=== PATIENT | male | born 1985 | race Caucasian/White ===

== ENCOUNTER 2021-02-23 14:39 | Inpatient (IN) | payer MEDICAID, SELFPAY ==
[2021-02-23] VITALS (21 sets, daily range): BP systolic 93–150; BP diastolic 66–100; PULSE 83–101; RESP 15–25; TEMP 36.6–36.8; O2SAT 81–100; BMI 36.9
--- NOTE | 2021-02-23 14:47 | ED_ITS ---
HPI - Chest Pain General: Chief Complaint: Chest Pain Stated Complaint: chest pain Time Seen by Provider: 02/23/21 14:44 History of Present Illness: HPI narrative: 35-year-old male with a history of coronary disease with previous coronary artery bypass graft. Presents complaining of chest pain that began earlier today while at rest rated the pain 6 out of 10. Began about half hour prior to arrival here he took a sublingual nitro with minimal relief of discomfort. There is no radiation of the pain. He has not had any fever sweats or chills he is mildly short of breath with exertion no diaphoresis. MD complaint: chest pain Pertinent past history: coronary artery disease Onset (ago): hour(s) Timing of current episode: episodic and constant Prior episodes: Yes Onset: during rest Pain location: substernal Pain radiation: none Severity: moderate Quality: tightness and heaviness Relieving factors: nothing Exacerbating factors: nothing Associated symptoms: Deny abdominal pain, diaphoresis, dyspnea, fever(s), leg edema, nausea, palpitations, sense of impending doom, syncope or vomiting Treatment prior to arrival: aspirin and nitroglycerin Review of Systems Const: Denies: fever(s) or diaphoresis Card: Denies: palpitations or syncope Resp: Denies: dyspnea GI: Denies: abdominal pain, nausea or vomiting PFSH ED PFSH: Medical History (Updated 02/23/21 @ 20:02 by Aj Huerta MD) Anxiety Bundle branch block, left Coronary artery disease Depression Diabetes mellitus Family history of heart disease in male family member before age 55 Hypothyroidism Obesity Smoker Substance abuse Surgical History (Updated 02/23/21 @ 16:48 by Biju Power DO) S/P CABG (coronary artery bypass graft) Family History (Updated 02/23/21 @ 17:18 by Noe Olivarez MD) Father CAD (coronary artery disease) Mother CAD (coronary artery disease) Social History (Updated 02/23/21 @ 17:19 by Noe Olivarez MD) Smoking and tobacco status: current some day smoker Alcohol intake: never Housing: Other Details: Lives at [facility] for now Physical Exam Const: COMMON NORMALS: no acute distress GENERAL APPEARANCE: cooperative and comfortable ORIENTATION/CONSCIOUSNESS: Yes awake, Yes oriented to person, Yes oriented to place and Yes oriented to time HENMT: COMMON NORMALS: normocephalic, atraumatic and hearing grossly normal bilaterally HEAD & SCALP: normocephalic and atraumatic Neck/C-Spine: COMMON NORMALS: no JVD Resp: COMMON NORMALS: normal respiratory effort, No retractions, No use of accessory muscles and clear to auscultation bilaterally AUSCULTATION: clear to auscultation bilaterally Cardio: COMMON NORMALS: no JVD, regular rate, regular rhythm and No murmurs present (Cardio) RATE: regular rate RHYTHM: regular rhythm GI: COMMON NORMALS: Soft to palpation and No hepatosplenomegaly present AUSCULTATION: Yes normoactive bowel sounds PALPATION: Yes Soft to palpation, No Tenderness to palpation present (GI), No Guarding due to palpation present (GI) and Yes No hepatosplenomegaly present Extremity: COMMON NORMALS: normal to inspection, capillary refill normal, no clubbing, cyanosis or edema, no calf tenderness and no pedal edema Neuro: SENSORIUM/ORIENTATION: Yes oriented to person, Yes oriented to place and Yes oriented to time Skin: COMMON NORMALS: no rashes or lesions noted GENERAL SKIN EXAM: no rashes or lesions noted Course Vital Signs: Vital signs: Vital Signs Temperature 98.4 F 02/24/21 14:03 Pulse Rate 86 02/24/21 14:03 Respiratory Rate 16 02/24/21 14:03 Blood Pressure 148/84 02/24/21 14:03 Pulse Oximetry 96 02/24/21 14:03 MDM - Chest Pain MDM Narrative: Medical decision making narrative: Patient having persistent pain has been given IV nitro morphine we will start him on a heparin drip. When he initially arrived I reviewed the EKGs and forward them to Dr. Galicia there is a bundle branch block there appears to be some ST elevation I think it is all due from the bundle branch block in V23 and 4 does not strictly meet criteria. Dr. Huerta is planning to come and see the patient and evaluate. I discussed Dr. Olivarez orders are written. Lab Data: Labs: Lab Results 02/23/21 02/23/21 02/23/21 15:10 15:10 15:10 WBC 8.3 10^3/uL 10^3/ uL (4.0-10.0) RBC 4.57 10^6/uL 10^6 /uL (4.1-5.3) Hgb 14.6 g/dL g/dL (11.7-16.6) Hct 43.3 % % (42.0-52.0) MCV 94.7 fl H fl (80-94) MCH 31.9 pg pg (28.0-34.0) MCHC 33.7 g/dL g/dL (30.0-36.0) RDW 12.2 % % (12.1-15.1) Plt Count 266 10^3/cmm 10^3 /cmm (130-400) MPV 10.5 fL H fL (7.4-10.4) Neut % (Auto) 60.5 % % Lymph % (Auto) 27.6 % % Trinity % (Auto) 8.4 % % Eos % (Auto) 2.5 % % Baso % (Auto) 0.5 % % Neut # (Auto) 5.04 10^3/uL 10^3 /uL (1.8-7.7) Lymph # (Auto) 2.3 10^3/uL 10^3/ uL (0.8-4.8) Trinity # (Auto) 0.7 10^3/uL 10^3/ uL (0.2-0.9) Eos # (Auto) 0.2 10^3/uL 10^3/ uL (0.0-0.8) Baso # (Auto) 0.0 10^3/uL 10^3/ uL (0.0-0.1) Nucleated RBC % (a uto) 0 % % Nucleated RBCs # 0.0 /100WBC /100W BC Sodium 134 mmol/L L mmol /L (136-145) Potassium 4.5 mmol/L mmol/L (3.5-5.1) Chloride 98 mmol/L mmol/L (98-107) Carbon Dioxide 20 mmol/L L mmol/ L (22-29) Anion Gap 20.5 H (5-19) BUN 13 mg/dL mg/dL (6-20) Creatinine 0.8 mg/dL mg/dL (0.7-1.2) GFR Calculation 108.8 mL/min mL/m in (90-130) Glucose 333 mg/dL H mg/dL (65-115) Calculated Osmolal ity 291 mOsm/kg mOsm/ kg (285-295) Calcium 8.8 mg/dL mg/dL (8.5-10.5) Troponin T Baselin e 29 ng/L H ng/L (0-15) Discharge Plan Discharge Patient Disposition: Admitted As Inpatient Admit Provider: Noe Olivarez Clinical Impression: Coronary artery disease, S/P CABG (coronary artery bypass graft), Obesity Chest pain Qualifiers: Chest pain type: precordial pain Qualified Code(s): R07.2 - Precordial pain Diabetes mellitus Qualifiers: Diabetes mellitus type: type 1 Diabetes mellitus complication status: with circulatory complication Condition: Stable Discharge Diet: Diabetic Discharge Activity: Resume usual activity Coding Level of Care Code ED Host/Hostess Head for Crescencio Fwd Exam Comprehensive
--- NOTE | 2021-02-23 14:48 | ECG_ITS ---
[facility] Test Date: 2021-02-23 Pat Name: Lico Mann Department: Room: Gender: Male Carbonator: : 1985 Requested By: Biju Spivey Order Number: [id number] Benjamin MD: Gregoria Holm M.D. Measurements Intervals [place] Rate: 95 P: 58 WA: 136 QRS: 58 QRSD: 165 T: 97 QT: 400 QTc: 505 Interpretive Statements SINUS RHYTHM POSSIBLE LEFT ATRIAL ENLARGEMENT [-0.1mV P-WAVE IN V1/V2] LEFT BUNDLE BRANCH BLOCK [120+ ms QRS DURATION, 80+ ms Q/S IN V1/V2, 85+ ms R IN I/aVL/V5/V6] No previous ECG available for comparison Electronically Signed On 02-23-2021 19:58:32 UNDERGROUND UTILITY LOCATOR by Gregoria Holm M.D. [id number]
--- NOTE | 2021-02-23 14:48 | XR_ITS ---
WS: [id number] XR chest 1V portable [id number] REASON FOR EXAM: chest pain FINDINGS: Sternal sutures. Mild tortuosity of the thoracic aorta. The heart is mildly enlarged. No acute pulmonary parenchymal or pleural abnormality. XR/XR chest 1V portable [id number] IMPRESSION: No acute chest abnormality.
[2021-02-23 15:28] LABS: Basophils % 0.5 %; Eosinophils # 0.2 10^3/uL (0.0-0.8); Eosinophils % 2.5 %; Hematocrit 43.3 % (42.0-52.0); Hemoglobin 14.6 g/dL (11.7-16.6); Lymphocytes # 2.3 10^3/uL (0.8-4.8); Lymphocytes % 27.6 %; Mean Corpuscular HGB Conc 33.7 g/dL (30.0-36.0); Mean Corpuscular Hemoglobin 31.9 pg (28.0-34.0); Mean Corpuscular Volume 94.7 fl (80-94); Mean Platelet Volume 10.5 fL (7.4-10.4); Monocytes # 0.7 10^3/uL (0.2-0.9); Monocytes % 8.4 %; Neutrophils # 5.04 10^3/uL (1.8-7.7); Neutrophils % 60.5 %; Nucleated Red Blood Cells % 0 %; Platelet Count 266 10^3/cmm (130-400); Red Blood Count 4.57 10^6/uL (4.1-5.3); Red Cell Distribution Width 12.2 % (12.1-15.1); White Blood Count 8.3 10^3/uL (4.0-10.0)
[2021-02-23] MEDS: nitroglycerin drip 50 MG/250 ML PREMIX IV (15:43)
[2021-02-23] MEDS: ondansetron 2 mg/ML SDV 2 mL 4 MG IVP (16:03)
[2021-02-23] MEDS: morphine 4 mg/mL SDV 1 mL 2 MG IVP ×2 (16:03→21:28)
[2021-02-23 16:04] LABS: Troponin(5th) Baseline 29 ng/L (0-15)
[2021-02-23 16:07] LABS: Anion Gap 20.5 (5-19); Blood Urea Nitrogen 13 mg/dL (6-20); Calcium 8.8 mg/dL (8.5-10.5); Carbon Dioxide 20 mmol/L (22-29); Chloride 98 mmol/L (98-107); Glomerular Filtration Rate 108.8 mL/min (90-130); Glucose 333 mg/dL (65-115); Osmolality Calculated 291 mOsm/kg (285-295); Potassium 4.5 mmol/L (3.5-5.1); Sodium 134 mmol/L (136-145)
--- NOTE | 2021-02-23 16:26 | P.HP_ITS ---
Providers/Chief Complaint Chief Complaint: chest pain History of Present Illness Lico Mann is a 35 year old male with past medical history type 2 diabetes mellitus, CAD post CABG, current smoker, hypertension, hypothyroidism [facility] where he got voluntarily admitted on February 14 for relapsing on nasal naltrexone p resented to the ER today with ongoing chest pain which woke him up from his nap in the afternoon at around 2:30 PM today. Patient states he had similar complaint around 2 weeks ago and was transferred to a different hospital where they had plan to do cardiac angiogram initially but then deferred. He does not know of having recent cardiac stress. Has not seen a laboratory chief in over 4 to 5 months. Complaining of nausea. Chest pain is central, pressure-like radiating to bilateral arms, currently on nitro drip having ongoing pain. Review of Systems General: Reports: 10 or more systems reviewed and unremarkable except in HPI and below Const: Denies: fever(s), chills, body aches, change in appetite, change in weight, malaise, night sweats, diaphoresis, change in sleep pattern, daytime sleepiness or snoring Eyes: Denies: change in vision, blurry vision, photophobia, eye discomfort or eye discharge ENMT: Denies: throat pain, enlarged tonsils, hoarseness, mouth pain, oral sores, dry mouth, tinnitus, nasal congestion or post nasal drip Card: Denies: chest pain, palpitations, irregular heart rhythm, edema, swelling of feet/ankles, lightheadedness, syncope, pre-syncope, dyspnea on exertion, orthopnea, leg pain with exertion or acrocyanosis Resp: Denies: dyspnea, productive cough, non-productive cough, wheezing, stridor, pain on inspiration, change in phlegm color, hemoptysis or chest congestion GI: Denies: abdominal pain, nausea, vomiting, hematemesis, coffee ground emesis, dysphagia, heartburn, diarrhea, constipation, bloating, GI cramping, change in bowel habits, pain on defecation, hematochezia or melena : Denies: flank pain, difficulty urinating, dysuria, urinary frequency, urinary urgency, urinary hesitancy, urinary dribbling, difficulty starting urination, change in urine stream, nocturia or hematuria Musc: Denies: neck pain, back pain, extremity pain, joint pain, joint swelling, joint redness, joint stiffness or limited range of motion Neuro: Denies: headache(s), numbness in extremities, weakness in extremities, sensory changes, lack of coordination, difficulty walking, frequent falls, dizziness, vertigo, confusion, Slurred speech present, difficulty communicating thoughts or seizure-like activity Psych: Denies: anxiety, depression, mood swings, panic attacks, hopelessness or irritability Endo: Denies: polyuria, polydipsia, tired all the time, cold intolerance, excessive sweating, flushing or heat intolerance Mack/Lymph: Denies: easy bruising or easy bleeding All/Imm: Denies: tongue swelling, facial swelling or acute wheezing Medications/Allergies Home Medications Medication Instructions Recorded Confirmed Last Taken Type Sal/Xyloc/Maalox 5 ml PO QID 02/23/21 02/23/21 02/16/21 History albuterol sulfate 2 puff INHALATION Q6H PRN 02/23/21 02/23/21 Unknown History bupropion HCl 150 mg PO QAM 02/23/21 02/23/21 02/23/21 History ciprofloxacin HCl 2 drp OPHTHALMIC (EYE) .6 TIMES 02/23/21 02/23/21 02/21/21 History DAILY clopidogrel [Plavix] 75 mg PO DAILY 02/23/21 02/23/21 02/23/21 History doxepin 50 mg PO TID 02/23/21 02/23/21 02/23/21 History furosemide [Lasix] 40 mg PO BID PRN 02/23/21 02/23/21 02/14/21 History glipizide 10 mg PO BID 02/23/21 02/23/21 02/23/21 History hydrochlorothiazide 25 mg PO DAILY 02/23/21 02/23/21 02/23/21 History lamotrigine [Lamictal] 100 mg PO DAILY 02/23/21 02/23/21 02/23/21 History levothyroxine 75 mcg PO DAILY 02/23/21 02/23/21 02/23/21 History liraglutide [Victoza 2-Jose] 1.2 mg SUBCUT DAILY 02/23/21 02/23/21 02/23/21 History metformin 1,000 mg PO BID 01/02/0202/23/21 02/23/21 History metoprolol tartrate 25 mg PO DAILY 02/23/21 02/23/21 02/23/21 History naltrexone 50 mg PO DAILY 02/23/21 02/23/21 02/23/21 History nitroglycerin [Nitrostat] 0.4 mg SUBLINGUAL Q5M PRN 02/23/21 02/23/21 02/22/21 History ondansetron [Zofran ODT] 8 mg PO Q6H PRN 02/23/21 02/23/21 Unknown History pantoprazole 40 mg PO DAILY 02/23/21 02/23/21 02/23/21 History potassium chloride 20 meq PO DAILY PRN 02/23/21 02/23/21 02/14/21 History prazosin 2 mg PO BEDTIME 02/23/21 02/23/21 02/22/21 History quetiapine [Seroquel] 100 mg PO BEDTIME 02/23/21 02/23/21 02/22/21 History risperidone See Rx Instructions .ROUTE .COMPLEX 02/23/21 02/23/21 02/23/21 History rosuvastatin [Crestor] 20 mg PO DAILY 02/23/21 02/23/21 02/23/21 History sitagliptin [Januvia] 100 mg PO DAILY 02/23/21 02/23/21 02/23/21 History zolpidem [Ambien] 10 mg PO BEDTIME PRN 02/23/21 02/23/21 Unknown History PFSH Acute PFSH: Medical History (Updated 02/23/21 @ 17:24 by Noe Olivarez MD) Anxiety Bundle branch block, left Coronary artery disease Depression Diabetes mellitus Family history of heart disease in male family member before age 55 Hypothyroidism Obesity Smoker Substance abuse Surgical History (Updated 02/23/21 @ 16:48 by Biju Power DO) S/P CABG (coronary artery bypass graft) Family History (Updated 02/23/21 @ 17:18 by Noe Olivarez MD) Father CAD (coronary artery disease) Mother CAD (coronary artery disease) Social History (Updated 02/23/21 @ 17:19 by Noe Olivarez MD) Smoking and tobacco status: current some day smoker Alcohol intake: never Substance/Drug Use: former Housing: Other Details: Lives at [facility] for now Vitals/I&O/Wt Last Vital Signs Temp 98.1 F 02/23/21 14:43 Pulse 97 02/23/21 16:19 Resp 20 H 02/23/21 16:19 BP 93/66 02/23/21 16:19 Pulse Ox 97 02/23/21 16:19 02/23/21 02/23/21 02/23/21 06:59 14:59 22:59 Intake Total Balance Weight last 48 hrs Weight 120.202 kg Physical Exam Narrative: EXAM NARRATIVE: General: In distress because of chest heaviness and headache, AO x3, morbidly obese HEENT: PERRLA, pupils bilaterally equal and reactive Chest: Normal vesicular breath sounds, no added sounds, equal good air entry bilaterally CVS: S1-S2 regular, no murmurs, no tachycardia, no gallops, no rubs Abdomen: Soft, nontender, no organomegaly, bowel sounds present Neuro: No focal deficits, no facial deformity, AO x3, power 5/5 in all limbs Data : 02/23/21 15:10 02/23/21 15:10 A&P Assessment and plan (1) Chest pain: Status: Acute (2) S/P CABG (coronary artery bypass graft): Status: Acute (3) Coronary artery disease: Status: Acute (4) Diabetes mellitus: Status: Acute (5) Obesity: Status: Acute (6) Smoker: Status: Acute (7) Bundle branch block, left: Status: Acute Additional A&P Information Chest pain: Unstable angina in setting of CAD post CABG. Already on nitro drip from ER. Received 324 mg of aspirin. Aspirin 81 mg, statin, continue with home dose of Plavix, metoprolol 25 mg twice daily. Start on heparin drip. Cardiology consulted from ER. Cycle troponins. Echocardiogram. Check A1c, lipid panel. Will try to get documents from [facility]. Continue other chronic medications for hypothyroidism, substance abuse, anxiety and depression. Type 2 diabetes mellitus: Insulin sliding scale. Hypertension: Goal blood pressure less than 140/90 mmHg For now continue with home dose of metoprolol. Full code. Heparin drip will help with DVT prophylaxis. Protonix for PUD prophylaxis. Cardiac carb consistent diet, n.p.o. after midnight. Attestations Medical Necessity Statement*: Admission for more than 2 midnights for management of unstable angina in setting of CAD, post CABG in young with ongoing chest pain on nitro and heparin drip Time Spent in Patient Care: Greater than 35 minutes (>than 50% of time spent in counselling and/or direct pt care on unit) . Coding Level of Care Code Acute Pharmacy Intake Coordinator for Crescencio Wilson Diagnoses Chest pain R07.9 S/P CABG (coronary artery bypass graft) Z95.1 Coronary artery disease I25.10 Diabetes mellitus E11.9 Obesity E66.9 Smoker F17.200 Bundle branch block, left I44.7
--- NOTE | 2021-02-23 16:48 | ECG_ITS ---
[facility] Test Date: 2021-02-23 Pat Name: Lico Mann Department: Room: Gender: Male Certified Nurses Aide: : 1985 Requested By: Biju Spivey Order Number: [id number] Benjamin MD: Gregoria Holm M.D. Measurements Intervals [place] Rate: 100 P: 54 SC: 168 QRS: 52 QRSD: 157 T: 121 QT: 378 QTc: 487 Interpretive Statements SINUS TACHYCARDIA LEFT BUNDLE BRANCH BLOCK [120+ ms QRS DURATION, 80+ ms Q/S IN V1/V2, 85+ ms R IN I/aVL/V5/V6] Compared to ECG 02/23/2021 14:53:05 Sinus rhythm no longer present Electronically Signed On 02-23-2021 20:12:50 FULL STACK WEB DEVELOPER by Gregoria Holm M.D. [id number]
[2021-02-23] MEDS: morphine 4 mg/mL SDV 1 mL IVP (17:20)
[2021-02-23] MEDS: heparin 5,000 unit/mL INJ 1 mL 4000 UNIT IVP (17:23)
[2021-02-23 17:54] LABS: Troponin 5 2HR 27.12 ng/L (0-15); Troponin 5 2HR Delta -1.88 ABS# (0-10)
--- NOTE | 2021-02-23 18:00 | XACV_ITS ---
Exam Room: [facility] Ht: 180 cm Wt: 120 kg BSA: 2.50 m2 Gender: Male : 1985 Exam Priority: Routine Procedure(s): Procedure Description: Diagnostic procedure Procedure Description: Aortogram Procedure Description: JAMES Graft Catheterization Procedure Description: Coronary Angiography AMISHSEAN Huerta; Diagnostic Cath Status: Urgent Diagnostic Findings * Left Main has no disease. * Mid Left Anterior Descending: total occlusion, JOEL: 0 flow. * Left Internal Mammary Artery to Mid Left Anterior Descending graft: patent. * Mid Right Coronary Artery: minimal 30% stenosis, JOEL: 3 flow. * Proximal Circumflex to Mid Circumflex: total occlusion, JOEL: 0 flow. * One graft visualized. * Coronary angiography shows right dominance. Conclusions 1. Saphenous venous graft to circumflex was not visualized either it was nondominant circumflex which was not bypassed or it is occluded. Aortogram was also performed which showed aorta is normal no visualization of saphenous venous graft to circumflex or ENRRIQUE to circumflex visualized.. 2. There is total occlusion coronary artery disease with three vessel disease. 3. One coronary graft visualized: all grafts patent. 4. Patient has prior CABG. Recommendations * Continue current medical management and risk factor modification. Diagnostic RX Recommendation: medical therapy and/or counseling Pressures Phase:Rest AO : 108 / 76 ( 90 ) @ 4:56:00 PM 125 / 74 ( 94 ) @ 5:07:00 PM Clinical Evaluation EBL: 5mL-10mL Procedural Details Procedure Consent Obtained. Thao Lloyd RN circulating. Pre-Procedure Time Out. Identified patient by full name and date of as verbalized by the patient/guarantor. Does the consent match the physician's order: Yes. Accurate & Complete Informed Consent: Yes. Inpatient/Outpatient History & Physical on Chart: Yes. If H&P is completed, is and addenduem needed: Yes. Visualize and Verify Site with Patient/Guarantor: N/A. Relevant Radiology Images available: Yes. The risks, benefits, and alternatives of sedation and/or procedure were discussed by physician. The patient agrees to continue. Procedure started. [facility] Clinical Fraility Score: 3: Managing Well. Client Advocate Indications: Worsening Angina. Chest Pain Symptom Assessment: Typical Angina Symptoms. Cardiovascular Instability: No. Correct patient, site and procedure confirmed by cath team. Current diagnosis: Unstable angina. PERRLA. Strong, equal hand cabin supervisor bilaterally. Lungs clear x 5 lobes. IV Site on Arrival: 20 gauge in the right hand. IV Fluids: 0.9% NaCl at KVO. 0 mL infused prior to cytogenetics laboratory manager. Pre Procedural Pulses: bilateral dorsalis pedis was 2+. Pre Procedural Pulses: bilateral posterior tibial was 2+. Pre Procedural Pulses: bilateral radial was 2+. Oxygen started at 2liters/min via nasal canula. bilateral groins was prepped with chloroprep then draped in the usual sterile fashion. Physician notified. Baseline sample Acquired. HR: 97 BPM. Patient's family unavailable. Equipment: 6F - Femoral. Cardiac Cath Pack. ACIST Manifold Kit Model BT 2000. Heparinized Saline (2 units/mL), 1000 mL bag. Kit, Micropuncture. Physician arrived. Physician scrubbed in. Immediate Pre-Procedure Time Out. Correct Patient: Yes; Correct Procedure: Yes; Correct Site: Yes; Correct Patient Position: Yes; Correct Supplies: Yes; Dried Flammable Prep: Yes; Blood Products Available: N/A. Lidocaine 1% infiltrated to the right groin. Arterial access obtained with micropuncture set. A 5 qatari JL4 catheter in over wire. Multiple views taken of left coronary artery. Catheter removed over the standard wire. A 5 qatari JR4 catheter in over wire. Multiple views taken of right coronary artery. Catheter redirected to look for bypass graft. A 5 qatari Angled Pig catheter in over wire. Aortogram performed in ROLAND @ 20 mL/second for a total of 40 mL. Catheter removed over the standard wire. A 5 qatari 3DRC catheter in over wire. Multiple views taken of right coronary artery. Catheter removed over the standard wire. A 5 qatari JR4 catheter in over wire. JAMES to LAD visualized. Catheter removed over the standard wire. Dr. Huerta scrubbed out. Sheath(s) sutured into position with 2-0 silk and sterile 4x4's and Op-site applied over the site. No oozing or signs and symptoms of hematoma noted. Arterial sheath flushed and connected to tranducer and pressure bag with heparinized saline. Post Procedure: Pulses reassessed and unchanged. PERRLA. Strong, equal hand cabin supervisor bilaterally. No VTE prophylaxis required. Medication's Wasted: Heparin = 4000 units. Total IV fluids: 75 mL. Post-op diagnosis: Occluded LAD, Non-dominant CX, JAMES to the LAD patent, RCA patent. Complications: none. Estimated blood loss: 5mL-10mL. Responsiveness - Normal response to verbal stimuli; alert and oriented, PERRLA. Airway - Unaffected, no intervention required; spontaneous ventilation. Circulation: W/N/L, pulses unchanged. Nausea/Vomiting: No. Procedure completed. Patient transferred by bed to 1st floor. Vital chart was stopped. Access Site Site: Right Femoral artery Sheath Size: 6 Fr Hemostasis Success: Unsuccessful Procedure Medications Start: 6:42 PM Stop: 6:42 PM Medication: Versed Amount: 2 mg Route: I.V. Start: 6:42 PM Stop: 6:42 PM Medication: Fentanyl Amount: 50 mcg Route: I.V. Start: 6:46 PM Stop: 6:46 PM Medication: Versed Amount: 1 mg Route: I.V. Start: 6:49 PM Stop: 6:49 PM Medication: Versed Amount: 2 mg Route: I.V. Start: 6:49 PM Stop: 6:49 PM Medication: Fentanyl Amount: 50 mcg Route: I.V. Start: 6:50 PM Stop: 6:50 PM Medication: Versed Amount: 1 mg Route: I.V. Start: 6:50 PM Stop: 6:50 PM Medication: Fentanyl Amount: 50 mcg Route: I.V. Start: 6:50 PM Stop: 6:50 PM Medication: Fentanyl Amount: 50 mcg Route: I.V. Start: 6:52 PM Stop: 6:52 PM Medication: Versed Amount: 1 mg Route: I.V. Start: 6:56 PM Stop: 6:56 PM Medication: Versed Amount: 1 mg Route: I.V. Start: 7:02 PM Stop: 7:02 PM Medication: Lopressor (metoprolol) Amount: 5 mg Route: I.V. Start: 7:13 PM Stop: 7:13 PM Medication: Versed Amount: 1 mg Route: I.V. Start: 7:13 PM Stop: 7:13 PM Medication: Fentanyl Amount: 50 mcg Route: I.V. I, the attending physician, have reviewed and verified all procedure medications. Yes, all medications given per verbal order History/Risk Factors Hypertension: Yes Dyslipidemia: Yes Peripheral Arterial Disease (PAD): No Myocardial Infarction (ME): No Obesity: Yes Renal Disease: No Tobacco Use: Current/Recent(w/in 1 year) Prior Interventions PCI: Yes CABG: Yes Valve Surgery: No Report Signatures Finalized by Aj Huerta MD on 03/08/2021 07:46 PM
[2021-02-23 18:09] LABS: Thyroid Stimulating Hormone 3.16 uIU/mL (0.27-4.20)
[2021-02-23 18:33] LABS: Iron 19 ug/dL (59-158); Percent Saturation 6.3 % (20-50); Total Iron Binding Capacity 300 mcg/dl; Unsaturated Iron Binding 281 ug/dL (112-347)
--- NOTE | 2021-02-23 18:36 | PM.CONSULT ---
Providers/Reason For Consult Consulting Physician/Specialty*: Cardiology Reason for Consult*: Chest pain suspicious for unstable angina Attending Physician: Noe Olivarez MD History of Present Illness History of Present Illness Lico Mann is a 35 year old male past medical history significant for coronary artery disease with history of single-vessel graft as per patient JAMES to LAD prior stents in unknown vessel history of diabetes mellitus uncontrolled hypertension obesity and substance abuse. He presented with worsening of chest pain according to him which has increased in duration and intensity for the last few days. Since patient continues to have chest pain despite of nitroglycerin and IV medicine which he states 7 out of 10 and told us that exactly it is the same when he had his heart attack since he has history of coronary artery disease at very young age and because of the fact he continues to hurt for suspicion of unstable angina we took him to [facility]. He was noted to have patent left main, chronically occluded mid LAD, nondominant circumflex and dominant RCA. JAMES to LAD was patent. His chest pain is noncardiac and questionable. No significant ST-T ST changes on the EKG. Review of Systems General: Reports: 10 or more systems reviewed and unremarkable except in HPI and below Const: Denies: fever(s), chills, body aches, change in appetite, change in weight, malaise, night sweats, diaphoresis, change in sleep pattern, daytime sleepiness or snoring Eyes: Denies: change in vision, blurry vision, photophobia, eye discomfort or eye discharge ENMT: Denies: throat pain, enlarged tonsils, hoarseness, mouth pain, oral sores, dry mouth, tinnitus, nasal congestion or post nasal drip Card: Denies: chest pain, palpitations, irregular heart rhythm, edema, swelling of feet/ankles, lightheadedness, syncope, pre-syncope, dyspnea on exertion, orthopnea, leg pain with exertion or acrocyanosis Resp: Denies: dyspnea, productive cough, non-productive cough, wheezing, stridor, pain on inspiration, change in phlegm color, hemoptysis or chest congestion GI: Denies: abdominal pain, nausea, vomiting, hematemesis, coffee ground emesis, dysphagia, heartburn, diarrhea, constipation, bloating, GI cramping, change in bowel habits, pain on defecation, hematochezia or melena : Denies: flank pain, difficulty urinating, dysuria, urinary frequency, urinary urgency, urinary hesitancy, urinary dribbling, difficulty starting urination, change in urine stream, nocturia or hematuria Musc: Denies: neck pain, back pain, extremity pain, joint pain, joint swelling, joint redness, joint stiffness or limited range of motion Neuro: Denies: headache(s), numbness in extremities, weakness in extremities, sensory changes, lack of coordination, difficulty walking, frequent falls, dizziness, vertigo, confusion, Slurred speech present, difficulty communicating thoughts or seizure-like activity Psych: Denies: anxiety, depression, mood swings, panic attacks, hopelessness or irritability Endo: Denies: polyuria, polydipsia, tired all the time, cold intolerance, excessive sweating, flushing or heat intolerance Mack/Lymph: Denies: easy bruising or easy bleeding All/Imm: Denies: tongue swelling, facial swelling or acute wheezing Medications/Allergies Home Medications Medication Instructions Recorded Confirmed Last Taken Type Sal/Xyloc/Maalox 5 ml PO QID 02/23/21 02/23/21 02/16/21 History albuterol sulfate 2 puff INHALATION Q6H PRN 02/23/21 02/23/21 Unknown History bupropion HCl 150 mg PO QAM 02/23/21 02/23/21 02/23/21 History ciprofloxacin HCl 2 drp OPHTHALMIC (EYE) .6 TIMES 02/23/21 02/23/21 02/21/21 History DAILY clopidogrel [Plavix] 75 mg PO DAILY 02/23/21 02/23/21 02/23/21 History doxepin 50 mg PO TID 02/23/21 02/23/21 02/23/21 History furosemide [Lasix] 40 mg PO BID PRN 02/23/21 02/23/21 02/14/21 History glipizide 10 mg PO BID 02/23/21 02/23/21 02/23/21 History hydrochlorothiazide 25 mg PO DAILY 02/23/21 02/23/21 02/23/21 History lamotrigine [Lamictal] 100 mg PO DAILY 02/23/21 02/23/21 02/23/21 History levothyroxine 75 mcg PO DAILY 02/23/21 02/23/21 02/23/21 History liraglutide [Victoza 2-Jose] 1.2 mg SUBCUT DAILY 02/23/21 02/23/21 02/23/21 History metformin 1,000 mg PO BID 02/23/21 02/23/21 02/23/21 History metoprolol tartrate 25 mg PO DAILY 02/23/21 02/23/21 02/23/21 History naltrexone 50 mg PO DAILY 02/23/21 02/23/21 02/23/21 History nitroglycerin [Nitrostat] 0.4 mg SUBLINGUAL Q5M PRN 02/23/21 02/23/21 02/22/21 History ondansetron [Zofran ODT] 8 mg PO Q6H PRN 02/23/21 02/23/21 Unknown History pantoprazole 40 mg PO DAILY 02/23/21 02/23/21 02/23/21 History potassium chloride 20 meq PO DAILY PRN 02/23/21 02/23/21 02/14/21 History prazosin 2 mg PO BEDTIME 02/23/21 02/23/21 02/22/21 History quetiapine [Seroquel] 100 mg PO BEDTIME 02/23/21 02/23/21 02/22/21 History risperidone See Rx Instructions .ROUTE .COMPLEX 02/23/21 02/23/21 02/23/21 History rosuvastatin [Crestor] 20 mg PO DAILY 02/23/21 02/23/21 02/23/21 History sitagliptin [Januvia] 100 mg PO DAILY 02/23/21 02/23/21 02/23/21 History zolpidem [Ambien] 10 mg PO BEDTIME PRN 02/23/21 02/23/21 Unknown History Current Medications Generic Name Dose Route Start Last Admin Trade Name Freq PRN Reason Stop Dose Admin Nitroglycerin/Dextrose 50 mg in 250 mls @ 0 mls/hr 02/23/21 15:00 02/23/21 16:03 Nitroglycerin Drip IV 20 mcg/min .Q0M JESE 6 mls/hr Titration Protocol Per Protocol PFSH Acute PFSH: Medical History (Updated 02/23/21 @ 20:02 by Aj Huerta MD) Anxiety Bundle branch block, left Coronary artery disease Depression Diabetes mellitus Family history of heart disease in male family member before age 55 Hypothyroidism Obesity Smoker Substance abuse Surgical History (Updated 02/23/21 @ 16:48 by Biju Power DO) S/P CABG (coronary artery bypass graft) Family History (Updated 02/23/21 @ 17:18 by Noe Olivarez MD) Father CAD (coronary artery disease) Mother CAD (coronary artery disease) Social History (Updated 02/23/21 @ 17:19 by Noe Olivarez MD) Smoking and tobacco status: current some day smoker Alcohol intake: never Housing: Other Details: Lives at [facility] for now Vitals/I&O/Wt Last Vital Signs Temp 98.1 F 02/23/21 18:19 Pulse 91 02/23/21 18:19 Resp 19 H 02/23/21 18:19 BP 120/81 02/23/21 18:19 Pulse Ox 98 02/23/21 18:19 02/23/21 02/23/21 02/23/21 06:59 14:59 22:59 Intake Total Balance Weight last 48 hrs Weight 265 lb Physical Exam Narrative: EXAM NARRATIVE: GENERAL: Patient is alert, awake and oriented x3. NECK: No jugular vein distension. HEENT: No cyanosis. No icterus. No pallor. HEART: Regular S1 and S2. No murmur, rub or gallop. LUNGS: Clear to auscultate bilaterally. Sternotomy wound looks good no tender nurse ABDOMEN: Soft, nontender and nondistended. Positive bowel sounds. No guarding, rebound or tenderness. CENTRAL NERVOUS SYSTEM: Grossly nonfocal. EXTREMITIES: Lower extremities without edema bilaterally. A&P Assessment and plan (1) Chest pain: Most likely noncardiac, could be musculoskeletal, will rule out pericardial effusion with echocardiogram. There is also question of medicine seeking behavior Status: Acute Qualifiers: Chest pain type: precordial pain Qualified Code(s): R07.2 - Precordial pain (2) S/P CABG (coronary artery bypass graft): JAMES to LAD is patent RCA is patent without significant disease circumflex was nondominant left main is normal, LAD is chronically occluded in the mid. Continue current regimen Status: Acute (3) Diabetes mellitus: Continue as per medicine Status: Acute Qualifiers: Diabetes mellitus type: type 1 Diabetes mellitus complication status: with circulatory complication Consult Attestations Medical Necessity Statement: Patient require continuation hospitalization for above defined care Coding Level of Care Code New Pt Acute Roller [facility] for Chg Fwd Patient Type New History Detailed Exam Detailed Medical Decision Making Moderate Complexity Diagnoses Chest pain R07.2 Chest pain type: precordial pain S/P CABG (coronary artery bypass graft) Z95.1 Diabetes mellitus E11.9 Diabetes mellitus type: type 1 Diabetes mellitus complication status: with circulatory complication
[2021-02-23 18:46] LABS: NT Pro B Type Natriuretic Pept 11985 pg/mL (0-125)
--- NOTE | 2021-02-23 19:37 | CTR_ITS ---
PROCEDURE INFORMATION: Exam: CT Chest Without Contrast; Diagnostic Exam date and time: 02/23/2021 7:37 PM Age: 35 years old Clinical indication: Chest pressure; Prior surgery; Surgery type: Cabg. Loop recorder. ; Patient HX: C/O persistent central chest pain. TECHNIQUE: Imaging protocol: Diagnostic computed tomography of the chest without contrast. Total images: 297 Radiation optimization: All CT scans at this facility use at least one of these dose optimization techniques: automated exposure control; mA and/or kV adjustment per patient size (includes targeted exams where dose is matched to clinical indication); or iterative reconstruction. COMPARISON: CR XR chest 1V portable [id number] 02/23/2021 2:55 PM RADIATION DOSE METRICS: Total DLP (mGy-cm): 955.51 FINDINGS: Lungs: Unremarkable. No consolidation. No masses. Pleural spaces: Unremarkable. No pneumothorax. No pleural effusion. Heart: Prior coronary artery bypass grafting. Loop cardiac recorder present. Mild cardiomegaly. Aorta: Unremarkable. No aortic aneurysm. Lymph nodes: Unremarkable. No enlarged lymph nodes. Adrenal glands: Benign left adrenal calcification noted, no further followup necessary. Bones/joints: Unremarkable. No acute fracture. Soft tissues: Unremarkable. CT/CT chest [facility] [id number] IMPRESSION: 1. Mild cardiomegaly. 2. No acute process identified.
--- NOTE | 2021-02-23 20:48 | ECG_ITS ---
[facility] Test Date: 2021-02-23 Pat Name: Lico Mann Department: Room: 112 Gender: Male Hide Salter: : 1985 Requested By: Biju Spivey Order Number: [id number] Reading MD: TERRI CULVER Measurements Intervals [place] Rate: 85 P: 65 HI: 173 QRS: 89 QRSD: 168 T: 67 QT: 414 QTc: 493 Interpretive Statements SINUS RHYTHM INTRAVENTRICULAR CONDUCTION DELAY [130+ ms QRS DURATION] Compared to ECG 02/23/2021 16:31:50 Intraventricular conduction delay now present Sinus tachycardia no longer present Left bundle-branch block no longer present Electronically Signed On 02-25-2021 18:22:01 WINERY CELLAR HAND by TERRI CULVER [id number]
[2021-02-23 20:59] LABS: Glucose Point of Care 189 mg/dL (70-110)
[2021-02-23] MEDS: lidocaine 2% viscous 1.667 ML, diphenhydrAMINE oral liq 4.165 MG, aluminum-mag hydrox-s... MUCOUS MEM (21:18)
[2021-02-23] MEDS: metoprolol tartrate 25 mg Tablet PO (21:18)
[2021-02-23] MEDS: zolpidem 5 mg Tablet 10 MG PO (21:18)
[2021-02-23] MEDS: prazosin 1 mg Capsule 2 MG PO (21:18)
[2021-02-23] MEDS: quetiapine 100 mg Tablet PO (21:18)
[2021-02-23] MEDS: insulin lispro 100 unit/1 mL SUBCUT (21:19)
[2021-02-23] MEDS: ALPRAZolam 0.5 mg Tablet 0.25 MG PO (21:28)
[2021-02-23 21:33] LABS: Partial Thromboplastin Time 26.4 SECONDS (23.9-36.7)
[2021-02-23 21:37] LABS: Troponin 5 6HR 27.43 ng/L (0-15)
[2021-02-23 21:38] LABS: Troponin 5 6HR Delta -1.57 ng/L (0-12)
--- NOTE | 2021-02-23 21:40 | PC.NURSE ---
Patient c/o chest pain 08/21. Patient does not appear to be in any distress. VSS. Patient educated on post-cath activity restrictions and became angry. Nurse stated, I'm sorry, I know it's frustrating. Patient states, it doesn't frustrate me, it pisses me off, it's bullshit, I'm not gonna bleed. Patient reeducated on post-cath safety and activity restrictions. Sheath removed from right groin at 1950. Manual pressure held for 20 minutes. Dressing placed. Right groin site and distal WNL. VSS.
--- NOTE | 2021-02-23 21:54 | PC.NURSE ---
Patient states that he is supposed to wear a CPAP at home, but he states the insurance hasn't covered it yet and he doesn't not have the machine yet. Patient is from [place].
[2021-02-23] MEDS: doxepin 50 mg Capsule PO (23:39)
[2021-02-24] VITALS (8 sets, daily range): BP systolic 119–148; BP diastolic 77–98; PULSE 82–102; RESP 16–18; TEMP 36.9; O2SAT 95–96
[2021-02-24] MEDS: morphine 4 mg/mL SDV 1 mL 2 MG IVP ×2 (00:58→05:04)
--- NOTE | 2021-02-24 03:49 | PC.NURSE ---
Patient sitting on side of bed. Right groin site and distal WNL.
[2021-02-24] MEDS: buPROPion XL (24 HR) 150 mg Tablet PO (05:04)
[2021-02-24 06:28] LABS: Glucose Point of Care 293 mg/dL (70-110)
[2021-02-24 07:42] LABS: Basophils % 0.5 %; Eosinophils # 0.2 10^3/uL (0.0-0.8); Eosinophils % 2.4 %; Hematocrit 42.1 % (42.0-52.0); Hemoglobin 13.9 g/dL (11.7-16.6); Lymphocytes # 2.5 10^3/uL (0.8-4.8); Lymphocytes % 33.2 %; Mean Corpuscular Hemoglobin 31.6 pg (28.0-34.0); Mean Corpuscular Volume 95.7 fl (80-94); Mean Platelet Volume 10.2 fL (7.4-10.4); Monocytes # 0.7 10^3/uL (0.2-0.9); Monocytes % 9.6 %; Neutrophils # 4.12 10^3/uL (1.8-7.7); Neutrophils % 53.9 %; Nucleated Red Blood Cells % 0 %; Platelet Count 229 10^3/cmm (130-400); White Blood Count 7.6 10^3/uL (4.0-10.0)
[2021-02-24 08:03] LABS: Alanine Aminotransferase 27 U/L (0-41); Albumin Level 3.7 g/dL (3.5-5.2); Alkaline Phosphatase 103 IU/L (40-130); Aspartate Amino Transferase 25 U/L (0-40); Blood Urea Nitrogen 13 mg/dL (6-20); Calcium 8.5 mg/dL (8.5-10.5); Carbon Dioxide 21 mmol/L (22-29); Chloride 98 mmol/L (98-107); Chol HDL Ratio 5.26 mg/dL (1.0-5.00); Cholesterol 200 mg/dL (0-200); Globulin 2.8 g/dL (1.3-4.6); Glomerular Filtration Rate 151.6 mL/min (90-130); Glucose 257 mg/dL (65-115); HDL Cholesterol 38 mg/dL (60-100); LDL Cholesterol Calculated 133 mg/dL (50-129); Magnesium 1.6 mg/dL (1.7-2.3); Osmolality Calculated 287 mOsm/kg (285-295); Phosphorus 3.1 mg/dL (2.5-4.5); Sodium 134 mmol/L (136-145); Total Bilirubin 0.3 mg/dL (0.15-1.2); Total Protein 6.5 g/dL (6.6-8.7); Triglycerides 145 mg/dL (0-150); VLDL Cholestrol Calculation 29 mg/dL (0-30)
[2021-02-24 08:13] LABS: Anion Gap 19.4 (5-19); Potassium 4.4 mmol/L (3.5-5.1)
[2021-02-24 08:24] LABS: Estmated Average Glucose 243; Hemoglobin A1C 10.1 % (4.0-6.0)
[2021-02-24] MEDS: pantoprazole DR 40 mg Tablet PO (08:30)
[2021-02-24] MEDS: risperiDONE 1 mg Tablet 0.5 MG PO (08:30)
[2021-02-24] MEDS: doxepin 50 mg Capsule PO (08:30)
[2021-02-24] MEDS: aspirin 81 mg EC Tablet PO (08:31)
[2021-02-24] MEDS: levothyroxine 75 mcg Tablet PO (08:31)
[2021-02-24] MEDS: atorvastatin 40 mg Tablet 80 MG PO (08:31)
[2021-02-24] MEDS: lamoTRIgine 100 mg Tablet PO (08:31)
[2021-02-24] MEDS: clopidogrel 75 mg Tablet PO (08:31)
[2021-02-24] MEDS: insulin lispro 100 unit/1 mL SUBCUT (08:33)
[2021-02-24] MEDS: lidocaine 2% viscous 1.667 ML, diphenhydrAMINE oral liq 4.165 MG, aluminum-mag hydrox-s... MUCOUS MEM (08:34)
[2021-02-24] MEDS: ALPRAZolam 0.5 mg Tablet 0.25 MG PO (08:54)
[2021-02-24] MEDS: metoprolol tartrate 25 mg Tablet PO (08:54)
--- NOTE | 2021-02-24 10:08 | PC.CHAP ---
Pastoral Care Encounter/Spiritual Assessment Type of Contact [x] Declined patient scheduler visit [] Patient/Family/Request visit [] Outpatient visit [] Follow-up visit [] Physician referral [] Code/Alert [] Routine visit [] Staff referral [] Actively dying [] Patient sleeping [] Family support [] [] Out of room [] Palliative care [] [] Receiving care in room [] Pre-surgical visit [] Trauma [] Long length of stay [] ICU visit [] Other: Relational/Emotional Strength [] Patient feels connected with others/family/visitors/staff [] Distress [] Loneliness/isolation [] Abandonment Spirituality of Patient [] Person of Odilia [] Attends Confucianism of their Odilia [] Believes in Prayer [] Reads Bible or Pentecostal materials [] There are Spiritual issues to be addressed Wool [employer]er Interventions [] Prayer [] Active listening [] Non-anxious presence [] Spiritual/emotional support [] Crisis/trauma care [] Spiritual counseling [] Bereavement support [] Provided bereavement packet [] Provided Bible/devotional materials [] Provided toy/stuffed animal, coloring book to patient or family member [] Provided Communion [] Anointing/[place] [] Salvation [] Completed spiritual assessment [] Other: Impact on Illness or Injury [] Angry [] Fearful [] Anxious [] Often cries [] Exhaustion [] Unable to work [] Unable to attend mu-ism [] Unable to walk/stand [] Unable to read [] Unable to drive [] Unable to eat/drink [] Unable to sleep [] Unable to be with family [] Patient intubated [] Other: Summary Declined patient scheduler visit Time spent with patient 5 mins
[2021-02-24] MEDS: nitroglycerin 0.4 mg sublingual Tablet SUBLINGUAL (10:09)
--- NOTE | 2021-02-24 10:21 | PC.NURSE ---
Earlier this morning patient complained of upper left chest pain. At that time patient refused offer of ntg subl stating it did not work and only morphine helped his pain. Patient then ate his breakfast and stretched out on the bed. Patient was scheduled for a GI cocktail with his morning meds. He stated his reflux was better after the GI cocktail, but that he still had chest pain. Patient's BP is 147/101. Dr. Huerta was notified of patient's elevated BP and c/o chest pain. Dr. Huerta examined & discussed with patient.
--- NOTE | 2021-02-24 11:00 | PC.NURSE ---
Patient refused having blood glucose checked.. Patient expresses frustration at delay in discharging home.
--- NOTE | 2021-02-24 15:05 | P.DS_ITS ---
Discharge Providers Date of Admission: 02/23/21 16:50 Date of Discharge: February 24, 2021 Attending Provider at Admission: Noe Olivarez MD Attending Provider at Discharge: Silva Marsh MD Diagnoses at Discharge Discharge Diagnosis (1) Chest pain: Status: Acute Qualifiers: Chest pain type: precordial pain Qualified Code(s): R07.2 - Precordial pain (2) S/P CABG (coronary artery bypass graft): Status: Acute (3) Diabetes mellitus: Status: Acute Qualifiers: Diabetes mellitus complication status: with circulatory complication Diabetes mellitus type: type 1 Reason for Visit Reason for Visit: chest pain Hospital Course Hospital Course Patient is 35 year old male with h/o type 2 DM, CAD, S/P CABG, smoking, HTN and hyperlipidemia who presented with chest pain. Patient states he has chest pain daily. His evaluation was negative for acute coronary ischemia. Cardiology consult obtained and patient underwent cardiac cath- no acute stenosis. Patient asking for pain meds to manage his chest pain- I have discussed that this is not appropriate treatment as he has atypical type discomfort and does not require narcotics. Patient is stable for discharge and F/U as an outpatient with his PCP in 5-7 da Physical Exam Narrative: EXAM NARRATIVE: alert, oreinted, obese, chronically ill appearing Const: COMMON NORMALS: patient oriented x3 and alert HENMT: COMMON NORMALS: normocephalic and atraumatic HEAD & SCALP: normocephalic and atraumatic Eye: COMMON NORMALS: Equal, round and reactive pupils present and no scleral icterus PUPIL: Yes Equal, round and reactive pupils present Neck/C-Spine: COMMON NORMALS: full ROM, supple and no JVD Lymph: LYMPHATIC: no lymphadenopathy noted Chest: COMMONS NORMALS: normal inspection of the chest Resp: COMMON NORMALS: normal respiratory effort and clear to auscultation bila terally AUSCULTATION: clear to auscultation bilaterally Cardio: COMMON NORMALS: no JVD, regular rate, regular rhythm, S1 normal heart sound present and S2 normal heart sound present RATE: regular rate RHYTHM: regular rhythm HEART SOUNDS: S1 normal heart sound present and S2 normal heart sound present GI: COMMON NORMALS: Soft to palpation AUSCULTATION: Yes normoactive bowel sounds PALPATION: Yes Soft to palpation, No Tenderness to palpation present (GI) and No Guarding due to palpation present (GI) Back/Pelvis: COMMON NORMALS: no thoracic nor lumbar tenderness Extremity: COMMON NORMALS: normal to inspection, full ROM and no pedal edema Neuro: COMMON NORMALS: patient oriented x3, moves all extremities, no sensory deficits noted and gait normal SENSORIUM/ORIENTATION: Yes alert Psych: COMMON NORMALS: mental status grossly normal and cooperative Skin: COMMON NORMALS: no rashes or lesions noted GENERAL SKIN EXAM: no rashes or lesions noted Discharge Data Data Completed and Pending: Completed Studies During Hospitalization Category Date Time Status CT chest wo con 7 1250 Routine Cat Scan 02/23/21 19:37 Completed XR chest 1V kevin ble [id number] Stat Exams 02/23/21 14:48 Completed Pending at discharge Category Date Time Status [employer] request for service Routin e Exams 02/23/21 18:00 Taken Platelet Count Q2 D Lab 02/25/21 04:00 Ordered Platelet Count Q2 D Lab 02/27/21 04:00 Ordered CV. echo complete * [id number] Routine Ultrasound 02/24/21 16:27 Taken Labs from last 24 hours 02/24/21 02/24/21 02/24/21 07:28 07:28 07:28 WBC 7.6 RBC 4.40 Hgb 13.9 Hct 42.1 MCV 95.7 H MCH 31.6 MCHC 33.0 RDW 12.0 L Plt Count 229 MPV 10.2 Neut % (Auto) 53.9 Lymph % (Auto) 33.2 Hinds % (Auto) 9.6 Eos % (Auto) 2.4 Baso % (Auto) 0.5 Neut # (Auto) 4.12 Lymph # (Auto) 2.5 Hinds # (Auto) 0.7 Eos # (Auto) 0.2 Baso # (Auto) 0.0 Nucleated RBC % (a uto) 0 Nucleated RBCs # 0.0 APTT Sodium 134 L Potassium 4.4 Chloride 98 Carbon Dioxide 21 L Anion Gap 19.4 H BUN 13 Creatinine 0.6 L GFR Calculation 151.6 H Glucose 257 H POC Glucose Estimat Average Gl ucose Hemoglobin A1c Calculated Osmolal ity 287 Calcium 8.5 Phosphorus 3.1 Magnesium 1.6 L Iron TIBC % Saturation Unsat Iron Binding Total Bilirubin 0.3 AST 25 ALT 27 Alkaline Phosphata se 103 Troponin T Baselin e Troponin T 120 Min [place] Delta Troponin T Troponin T Hi Sens 6Hr Troponin T Hi Sens 6Hr Delta NT-Pro-B Natriuret Pep Total Protein 6.5 L Albumin 3.7 Globulin 2.8 Triglycerides 145 Cancelled Cholesterol 200 Cancelled LDL Cholesterol, C alc 133 H Cancelled Total VLDL Cholest manuel 29 Cancelled HDL Cholesterol 38 L Cancelled Cholesterol/HDL Ra [place] 5.26 H Cancelled TSH 02/24/21 02/24/21 02/23/21 07:28 06:24 21:12 WBC RBC Hgb Hct MCV MCH MCHC RDW Plt Count MPV Neut % (Auto) Lymph % (Auto) Hinds % (Auto) Eos % (Auto) Baso % (Auto) Neut # (Auto) Lymph # (Auto) Hinds # (Auto) Eos # (Auto) Baso # (Auto) Nucleated RBC % (a uto) Nucleated RBCs # APTT 26.4 Sodium Potassium Chloride Carbon Dioxide Anion Gap BUN Creatinine GFR Calculation Glucose POC Glucose 293 H Estimat Average Gl ucose 243 Hemoglobin A1c 10.1 H Calculated Osmolal ity Calcium Phosphorus Magnesium Iron TIBC % Saturation Unsat Iron Binding Total Bilirubin AST ALT Alkaline Phosphata se Troponin T Baselin e Troponin T 120 Min [place] Delta Troponin T Troponin T Hi Sens 6Hr Troponin T Hi Sens 6Hr Delta NT-Pro-B Natriuret Pep Total Protein Albumin Globulin Triglycerides Cholesterol LDL Cholesterol, C alc Total VLDL Cholest manuel HDL Cholesterol Cholesterol/HDL Ra [place] TSH 02/23/21 02/23/21 02/23/21 21:12 20:55 17:12 WBC RBC Hgb Hct MCV MCH MCHC RDW Plt Count MPV Neut % (Auto) Lymph % (Auto) Hinds % (Auto) Eos % (Auto) Baso % (Auto) Neut # (Auto) Lymph # (Auto) Hinds # (Auto) Eos # (Auto) Baso # (Auto) Nucleated RBC % (a uto) Nucleated RBCs # APTT Sodium Potassium Chloride Carbon Dioxide Anion Gap BUN Creatinine GFR Calculation Glucose POC Glucose 189 H Estimat Average Gl ucose Hemoglobin A1c Calculated Osmolal ity Calcium Phosphorus Magnesium Iron 19 L TIBC 300 % Saturation 6.3 L Unsat Iron Binding 281 Total Bilirubin AST ALT Alkaline Phosphata se Troponin T Baselin e Troponin T 120 Min [place] Delta Troponin T Troponin T Hi Sens 6Hr 27.43 H Troponin T Hi Sens 6Hr Delta -1.57 L NT-Pro-B Natriuret Pep Total Protein Albumin Globulin Triglycerides Cholesterol LDL Cholesterol, C alc Total VLDL Cholest manuel HDL Cholesterol Cholesterol/HDL Ra [place] TSH 3.16 02/23/21 02/23/21 02/23/21 17:12 17:12 15:10 WBC RBC Hgb Hct MCV MCH MCHC RDW Plt Count MPV Neut % (Auto) Lymph % (Auto) Hinds % (Auto) Eos % (Auto) Baso % (Auto) Neut # (Auto) Lymph # (Auto) Hinds # (Auto) Eos # (Auto) Baso # (Auto) Nucleated RBC % (a uto) Nucleated RBCs # APTT Sodium Potassium Chloride Carbon Dioxide Anion Gap BUN Creatinine GFR Calculation Glucose POC Glucose Estimat Average Gl ucose Hemoglobin A1c Calculated Osmolal ity Calcium Phosphorus Magnesium Iron TIBC % Saturation Unsat Iron Binding Total Bilirubin AST ALT Alkaline Phosphata se Troponin T Baselin e 29 H Troponin T 120 Min [place] 27.12 H Delta Troponin T -1.88 L Troponin T Hi Sens 6Hr Troponin T Hi Sens 6Hr Delta NT-Pro-B Natriuret Pep 68293 H Total Protein Albumin Globulin Triglycerides Cholesterol LDL Cholesterol, C alc Total VLDL Cholest manuel HDL Cholesterol Cholesterol/HDL Ra [place] TSH 02/23/21 02/23/21 15:10 15:10 WBC 8.3 RBC 4.57 Hgb 14.6 Hct 43.3 MCV 94.7 H MCH 31.9 MCHC 33.7 RDW 12.2 Plt Count 266 MPV 10.5 H Neut % (Auto) 60.5 Lymph % (Auto) 27.6 Hinds % (Auto) 8.4 Eos % (Auto) 2.5 Baso % (Auto) 0.5 Neut # (Auto) 5.04 Lymph # (Auto) 2.3 Hinds # (Auto) 0.7 Eos # (Auto) 0.2 Baso # (Auto) 0.0 Nucleated RBC % (a uto) 0 Nucleated RBCs # 0.0 APTT Sodium 134 L Potassium 4.5 Chloride 98 Carbon Dioxide 20 L Anion Gap 20.5 H BUN 13 Creatinine 0.8 GFR Calculation 108.8 Glucose 333 H POC Glucose Estimat Average Gl ucose Hemoglobin A1c Calculated Osmolal ity 291 Calcium 8.8 Phosphorus Magnesium Iron TIBC % Saturation Unsat Iron Binding Total Bilirubin AST ALT Alkaline Phosphata se Troponin T Baselin e Troponin T 120 Min [place] Troponin T Troponin T Hi Sens 6Hr Troponin T Hi Sens 6Hr Delta NT-Pro-B Natriuret Pep Total Protein Albumin Globulin Triglycerides Cholesterol LDL Cholesterol, C alc Total VLDL Cholest manuel HDL Cholesterol Cholesterol/HDL Ra [place] TSH Vitals: Last Vital Signs Temp 98.4 F 02/24/21 14:03 Pulse 86 02/24/21 14:03 Resp 16 02/24/21 14:03 BP 148/84 02/24/21 14:03 Pulse Ox 96 02/24/21 14:03 Discharge Plan Discharge Patient Disposition: Home Condition: Stable Prescriptions: Continued Lasix 40 mg Tablet 40 mg PO BID PRN (Reason: edema) RF: 0 doxepin 50 mg Capsule 50 mg PO TID RF: 0 naltrexone 50 mg Tablet 50 mg PO DAILY RF: 0 glipizide 10 mg Tablet 10 mg PO BID RF: 0 Plavix 75 mg Tablet 75 mg PO DAILY RF: 0 Seroquel 100 mg Tablet 100 mg PO BEDTIME RF: 0 ondansetron 8 mg Tablet,Disintegrating 8 mg PO Q6H PRN (Reason: Nausea) RF: 0 levothyroxine 75 mcg Tablet 75 mcg PO DAILY RF: 0 ciprofloxacin HCl 0.3 % Drops 2 drp OPHTHALMIC (EYE) .6 TIMES DAILY RF: 0 pantoprazole 40 mg Tablet,Delayed Release (Dr/Ec) 40 mg PO DAILY RF: 0 metformin 1,000 mg Tablet 1,000 mg PO BID RF: 0 Nitrostat 0.4 mg Tablet, Sublingual 0.4 mg SUBLINGUAL Q5M PRN (Reason: Chest Pain) RF: 0 hydrochlorothiazide 25 mg Tablet 25 mg PO DAILY RF: 0 Ambien 10 mg Tablet 10 mg PO BEDTIME PRN (Reason: Insomnia) RF: 0 albuterol sulfate 90 mcg/actuation Hfa Aerosol Inhaler 2 puff INHALATION Q6H PRN (Reason: Shortness Of Breath) RF: 0 Lamictal 100 mg Tablet 100 mg PO DAILY RF: 0 risperidone 0.5 mg Tablet See Rx Instructions .ROUTE .COMPLEX RF: 0 prazosin 2 mg Capsule 2 mg PO BEDTIME RF: 0 Crestor 20 mg Tablet 20 mg PO DAILY RF: 0 bupropion HCl 150 mg Tablet Extended Release 24 Hr 150 mg PO QAM RF: 0 metoprolol tartrate 25 mg Tablet 25 mg PO DAILY RF: 0 Januvia 100 mg Tablet 100 mg PO DAILY RF: 0 Victoza 2-Jose 0.6 mg/0.1 mL (18 mg/3 mL) Pen Injector 1.2 mg SUBCUT DAILY RF: 0 potassium chloride 20 mEq Tablet Extended Release 20 meq PO DAILY PRN (Reason: with lasix) RF: 0 Sal/Xyloc/Maalox 5 ml PO QID RF: 0 Discharge Orders: Discharge Order (Routine); Ordered 02/24/21 Ordered By: Aj Huerta Referrals: [facility] [Outside] (Please followup with the attending Doctor At [facility]. Thank you) Discharge Diet: Diabetic Discharge Activity: Resume usual activity Patient Instructions: Chest Pain Stoplight, Post Angiogram Home Care Instructions Discharge Attestations Time Spent in Discharge Care*: greater than 30 min Specific Discharge Activities: educating patient, documenting/other paperwork and evaluating patient/reviewing data Time Spent in Smoking Cessation: 3 to 10 minutes Quality Metrics Clinical Quality Measures During this hospital stay, did patient experience: None Coding Level of Care Code Acute [facility] note Exam Comprehensive Diagnoses Chest pain R07.2 Chest pain type: precordial pain S/P CABG (coronary artery bypass graft) Z95.1 Diabetes mellitus E11.9 Diabetes mellitus complication status: with circulatory complication Diabetes mellitus type: type 1
--- NOTE | 2021-02-24 16:27 | USCV_ITS ---
Lico Mann Age: 35 Gender: M : 1985 Exam Date: 02/24/2021 06:30 Ordering Phys: Noe Olivarez MD Technologist: Exam Location: [facility] [place] Indication: HX OF AR BP: 122 / 78 HR: 85 Rhythm: Sinus Technical Quality: Adequate MEASUREMENTS (Male / Female) Normal Values 2D ECHO LVOT Diameter 2.0 cm LV Ejection Fraction MOD 2C 52.5 % LV Ejection Fraction 2C AL 53.8 % LA Diameter 3.8 cm LA Width 4.6 cm LA Height 5.6 cm RA Width 3.6 cm RA Height 5.7 cm M-MODE MV E Point Septal Separation 1.7 cm DOPPLER AV Peak Velocity 125.0 cm/s LVOT Peak Velocity 73.0 cm/s AV Area Cont Eq vti 2.7 cm squared AV Area Cont Eq pk 1.9 cm squared MV Area PHT 6.3 cm squared Mitral E to A Ratio 0.9 MV E' Velocity 82.0 cm/s TR Peak Velocity 192.3 cm/s TR Peak Gradient 14.8 mmHg TV Peak E Velocity 88.0 cm/s Right Atrial Pressure 3.0 mmHg Pulmonary Artery Systolic Pressu 17.8 mmHg FINDINGS Left Ventricle Normal left ventricular cavity size. Normal left ventricular systolic function. Left ventricular ejection fraction is estimated at 55 %. Right Ventricle The right ventricle is normal in size and function. Right Atrium The right atrium is normal in size. Left Atrium The left atrium is normal in size. Mitral Valve Moderately thickened mitral valve. No mitral valve stenosis. Mild-moderate mitral valve regurgitation. Aortic Valve Aortic valve sclerosis without stenosis or regurgitation. Tricuspid Valve Structurally normal tricuspid valve without significant stenosis or regurgitation. Pulmonary artery systolic pressure is normal. Pulmonic Valve Structurally normal pulmonic valve without significant stenosis. There is no pulmonic regurgitation. Pericardium Normal pericardium without effusion. Aorta Normal ascending aorta dimension. CONCLUSIONS 1-Normal left ventricular cavity size. Normal left ventricular systolic function. Left ventricular ejection fraction is estimated at 55 %. 2-Aortic valve sclerosis without stenosis or regurgitation. 3-Moderately thickened mitral valve. No mitral valve stenosis. Mild-moderate mitral valve regurgitation. 4-There is no pericardial effusion. 5-Pulmonary artery systolic pressure is within normal limits. 6-There are no prior echocardiogram studies to compare. Aj Huerta MD (Electronically Signed) Final Date: 24 February 2021 21:21 S
== END 2021-02-24 14:45 | disposition home or self-care (01) | DRG 287 ==
LOC: ER 16:48 → CSU 17:53
PROVIDERS: Internal Medicine Cardiovascular Disease; Admitting Provider Student in an Organized Health Care Education/Training Program; Emergency Provider Family Medicine; Visit Provider Internal Medicine
PROC: B2111ZZ Fluoroscopy of Multiple Coronary Arteries using Low Osmolar Contrast (ICD-10-PCS; principal; 2021-02-23 18:30)
DX: R07.2 Precordial pain (principal); I25.110 Atherosclerotic heart disease of native coronary artery with unstable angina pectoris; E10.59 Type 1 diabetes mellitus with other circulatory complications; I25.84 Coronary atherosclerosis due to calcified coronary lesion; I25.82 Chronic total occlusion of coronary artery; I10 Essential (primary) hypertension; E78.5 Hyperlipidemia, unspecified; Z95.1 Presence of aortocoronary bypass graft; E03.9 Hypothyroidism, unspecified; F41.9 Anxiety disorder, unspecified; F32.A Depression, unspecified; F19.10 Other psychoactive substance abuse, uncomplicated; E66.9 Obesity, unspecified; F17.200 Nicotine dependence, unspecified, uncomplicated; I44.7 Left bundle-branch block, unspecified; I25.2 Old myocardial infarction; Z79.84 Long term (current) use of oral hypoglycemic drugs; Z79.02 Long term (current) use of antithrombotics/antiplatelets; Z68.33 Body mass index [BMI] 33.0-33.9, adult; Z82.49 Family history of ischemic heart disease and other diseases of the circulatory system
CPT/HCPCS: 12345; 36415; 36416; 71045; 71250; 80048; 80053; 80061; 82962; 83036; 83540; 83550; 83735; 83880; 84100; 84443; 84484; 85025; 85730; 93005; 93306; 93455; 96372; 96374; 96375; 96376; 99285; C1769; C1887; C1894; J1644; J1815; J2250; J2270; J2405; J3010; J3490; J7030; Q9967